=== PATIENT | female | born 1975 | race African-American/Black ===

== ENCOUNTER 2024-11-17 06:15 | Day surgery (SDC) | payer OTHER ==
[2024-11-17] MEDS: LIDOCAINE HCL 1%, 10 MG/ML (20ML VIAL) NR ONE
[2024-11-17] MEDS ORDERED: LIDOCAINE HCL 1%, 10 MG/ML (20ML VIAL) ONE (14:57)
[2024-11-17] MEDS ORDERED: HEPARIN NA (PORCINE) 5,000 UNITS/ML 1ML VIAL ONE (14:57)
[2024-11-17 15:51] LABS: GLUCOSE,RANDOM 88.0 mg/dL (74-106)
[2024-11-17] MEDS ORDERED: MIDAZOLAM HCL 2 MG/2 ML SINGLE DOSE VIAL ONE (17:18)
[2024-11-17] MEDS ORDERED: PROPOFOL 20 ML ONE (17:53)
[2024-11-17] MEDS ORDERED: PANTOPRAZOLE 20 MG TABLET PO PRN (18:14)
[2024-11-17] MEDS ORDERED: diphenhydrAMINE HCL 25 MG CAPSULE (FP) PO PRN (18:14)
[2024-11-17] MEDS ORDERED: ONDANSETRON 4 MG/2 ML VIAL IVPUSH PRN (18:21)
[2024-11-17] MEDS ORDERED: LACTATED RINGERS SOLUTION 1,000 ML IV SCH (18:30)
[2024-11-17] MEDS: ACETAMINOPHEN 325 MG TABLET (FP) PO PRN (22:23)
[2024-11-17] MEDS: METOPROLOL TARTRATE 25 MG TABLET (FP) PO SCH (22:24)
[2024-11-17] MEDS ORDERED: ACETAMINOPHEN 1000 MG/100 ML BAG IVPB PRN (23:21)
[2024-11-17] MEDS: INSULIN GLARGINE (LANTUS) 100 UNITS/ML UNITS SQ SCH (23:48)
[2024-11-17] MEDS: PANTOPRAZOLE 20 MG TABLET PO SCH (23:48)
[2024-11-18] MEDS: PATIENT'S OWN MEDICATION (NON-FORMULARY) (Insulin Degludec [Tresiba Flextouch U-100] 100 U SQ SCH (00:03)
[2024-11-18] MEDS: CALCITRIOL 0.25 MCG CAPSULE (FP) PO SCH (10:26)
[2024-11-18] MEDS: ASPIRIN COATED 81 MG TABLET.EC PO SCH (10:26)
[2024-11-18] MEDS: CINACALCET HCL 30 MG TAB (FP) PO SCH (10:26)
[2024-11-18] MEDS: FLUTICASONE PROP 0.05% 16 GM NASAL SPRAY NS SCH (10:27)
[2024-11-18] MEDS ORDERED: SODIUM CHLORIDE 250 ML IV PRN (12:06)
[2024-11-18] MEDS ORDERED: HEPARIN NA (PORCINE) 5,000 UNITS/ML 1ML VIAL IVPUSH ONE (12:06)
[2024-11-18] MEDS: HEPARIN NA (PORCINE) 5,000 UNITS/ML 1ML VIAL IVPUSH ONE (14:05)
[2024-11-18 14:12] VITALS: BMI 47.4
[2024-11-18 14:18] VITALS: RESP 18; TEMP 98
[2024-11-18] MEDS: HEPARIN NA (PORCINE) 5,000 UNITS/ML 1ML VIAL IVPUSH SCH (15:00)
[2024-11-18 18:20] VITALS: BP 125/57; PULSE 82
== END 2024-11-18 19:50 | disposition home or self-care (01) ==
LOC: JASUSAT 06:15 → J7W 19:50 → JASUSAT 11-18 19:50
PROVIDERS: ATTEND Surgery
PROC: 0J2TXYZ Change Other Device in Trunk Subcutaneous Tissue and Fascia, External Approach (ICD-10-PCS; principal; 2024-11-17 14:45)
DX: T82.858A Stenosis of other vascular prosthetic devices, implants and grafts, initial encounter (principal); I12.0 Hypertensive chronic kidney disease with stage 5 chronic kidney disease or end stage renal disease; E11.22 Type 2 diabetes mellitus with diabetic chronic kidney disease; N18.6 End stage renal disease; Z79.4 Long term (current) use of insulin; Z99.2 Dependence on renal dialysis
CPT/HCPCS: 36581; 77001; C1750; 36415; 76000-TC-FY; 82947; 82962; 84132; 84703; 94760; J1644

== ENCOUNTER 2024-11-30 06:08 | Day surgery (SDC) | payer OTHER ==
[2024-11-30] MEDS ORDERED: HEPARIN NA (PORCINE) 5,000 UNITS/ML 1ML VIAL ONE ×2 (07:06→11:27)
[2024-11-30] MEDS ORDERED: PAPAVERINE HCL 30 MG/1 ML 10 ML VIAL NR ONE (07:06)
[2024-11-30] MEDS ORDERED: POVIDONE-IODINE OINTMENT 10% - 28.4 GM TUBE ONE ×2 (07:06→11:51)
[2024-11-30] MEDS ORDERED: LIDOCAINE HCL 1%, 10 MG/ML (20ML VIAL) ONE ×2 (07:06→11:27)
[2024-11-30] MEDS ORDERED: MIDAZOLAM HCL 2 MG/2 ML SINGLE DOSE VIAL ONE ×3 (12:28→14:17)
[2024-11-30] MEDS ORDERED: DEXAMETHASONE SOD PHOSPHATE 4 MG/1 ML VIAL ONE (12:37)
[2024-11-30] MEDS ORDERED: GLYCOPYRROLATE 0.2 MG/1 ML VIAL ONE ×2 (12:37)
[2024-11-30] MEDS ORDERED: ONDANSETRON 4 MG/2 ML VIAL ONE (12:37)
[2024-11-30] MEDS ORDERED: KETAMINE HCL 200 MG/20 ML VIAL ONE (12:38)
[2024-11-30] MEDS ORDERED: PROPOFOL 60 ML ONE (12:42)
[2024-11-30] MEDS ORDERED: PROPOFOL 20 ML ONE ×2 (12:48→12:59)
[2024-11-30] MEDS: LIDOCAINE HCL 1%, 10 MG/ML (50 mL VIAL) INF ONE ×3 (12:57)
[2024-11-30] MEDS ORDERED: PHENYLEPHRINE HCL 10 MG/1 ML SINGLE DOSE VIAL ONE (13:06)
[2024-11-30] MEDS ORDERED: NOREPINEPHRINE BITARTRATE 4 MG/4 ML ML IV ONE (13:10)
[2024-11-30] MEDS ORDERED: SUCCINYLCHOLINE CHLORIDE 200 MG/10 ML SYRINGE ONE (13:12)
[2024-11-30] MEDS ORDERED: ROCURONIUM BROMIDE 50 MG/5 ML SYRINGE ONE ×2 (13:24→14:38)
[2024-11-30] MEDS ORDERED: PROPOFOL 40 ML ONE (14:05)
[2024-11-30] MEDS ORDERED: SUGAMMADEX SODIUM 200 MG/2 ML VIAL ONE ×2 (15:11→15:12)
[2024-11-30] MEDS: ACETAMINOPHEN 1000 MG/100 ML BAG IVPB ONE (15:53)
[2024-11-30] MEDS: SODIUM CHLORIDE 1,000 ML IV SCH (15:54)
[2024-11-30] MEDS ORDERED: ONDANSETRON 4 MG/2 ML VIAL IVPUSH PRN (15:58)
[2024-11-30 17:49] VITALS: RESP 18
[2024-11-30] MEDS: ACETAMINOPHEN 1000 MG/100 ML BAG IVPB SCH (21:27)
[2024-11-30] MEDS: ENOXAPARIN NA (PORCINE) 40 MG/0.4 ML DISP.SYRIN SQ ONE (21:28)
[2024-11-30] MEDS ORDERED: ENOXAPARIN NA (PORCINE) 40 MG/0.4 ML DISP.SYRIN SQ SCH (22:00)
[2024-12-01] MEDS ORDERED: SODIUM CHLORIDE 250 ML IV PRN ×2 (07:29→10:27)
[2024-12-01] MEDS ORDERED: HEPARIN NA (PORCINE) 5,000 UNITS/ML 1ML VIAL IVPUSH ONE (07:29)
[2024-12-01 07:53] LABS: ABSOLUTE IMMATURE GRANULOCYTES 0.03 x10^3/uL (0.0-0.031); BASOPHILS # 0.05 x10^3/uL (0.01-0.08); EOSINOPHIL % 5.9 % (0.7-5.8); EOSINOPHILS # 0.59 x10^3/uL (0.04-0.36); MCHC 32.0 g/dl (32.2-35.5); MEAN CELL VOLUME 94.4 fl (79.4-94.8); MEAN PLT VOLUME 9.7 fl (9.4-12.3); MONOCYTE # 1.11 x10^3/uL (0.24-0.86); MONOCYTE % 11.0 % (4.7-12.5); RDW 13.0 % (12.3-16.6)
[2024-12-01 08:40] LABS: GLUCOSE,RANDOM 101 mg/dL (74-106)
[2024-12-01 08:41] LABS: TOT PROT 6.5 g/dl (6.4-8.2)
[2024-12-01 08:42] LABS: CO2 22 mmol/L (21-32)
[2024-12-01 08:43] LABS: ALK PHOS 96 U/L (40-150)
[2024-12-01 08:46] LABS: SGOT/AST 15 U/L (5-34)
[2024-12-01 09:02] LABS: SGPT/ALT < 6 U/L (0-55)
[2024-12-01 09:22] LABS: CREATININE 13.46 mg/dL (0.55-1.3)
[2024-12-01] MEDS: HEPARIN NA (PORCINE) 5,000 UNITS/ML 1ML VIAL IVPUSH ONE (09:40)
[2024-12-01] MEDS: HEPARIN NA (PORCINE) 5,000 UNITS/ML 1ML VIAL IVPUSH SCH (10:40)
[2024-12-01 13:57] VITALS: BP 103/58; PULSE 88; TEMP 98.1
[2024-12-01 17:04] VITALS: BMI 50.0
[2024-12-02] MEDS ORDERED: ENOXAPARIN NA (PORCINE) 30 MG/0.3 ML DISP.SYRIN SQ SCH (10:00)
== END 2024-12-01 19:16 | disposition home or self-care (01) ==
LOC: JASU-SURG 06:08 → JASUSAT 06:08 → J7W 17:53 → JASUSAT 12-01 19:16
PROVIDERS: ATTEND Surgery
PROC: 03160JD Bypass Left Axillary Artery to Upper Arm Vein with Synthetic Substitute, Open Approach (ICD-10-PCS; principal; 2024-11-30 08:00)
DX: E11.22 Type 2 diabetes mellitus with diabetic chronic kidney disease (principal); I12.0 Hypertensive chronic kidney disease with stage 5 chronic kidney disease or end stage renal disease; N18.6 End stage renal disease; Z99.2 Dependence on renal dialysis; Z79.4 Long term (current) use of insulin
CPT/HCPCS: 36415; 80053; 84132; 84703; 85025; 87340; 94760; C1768

== ENCOUNTER 2024-12-21 07:12 | Day surgery (SDC) | payer OTHER ==
[2024-12-19 15:29] VITALS: BMI 46.5
[2024-12-21] MEDS ORDERED: PROPOFOL 20 ML ONE (12:12)
[2024-12-21] MEDS ORDERED: MIDAZOLAM HCL 2 MG/2 ML SINGLE DOSE VIAL ONE ×2 (12:12→12:41)
[2024-12-21] MEDS ORDERED: DEXMEDETOMIDINE HCL 200 MCG/2 ML IVPB ONE (12:37)
[2024-12-21] MEDS: LIDOCAINE HCL 1%, 10 MG/ML (20ML VIAL) INF ONE (12:59)
[2024-12-21] MEDS ORDERED: IBUPROFEN 600 MG TABLET (FP) PO ONE (15:43)
[2024-12-21] MEDS: IBUPROFEN 600 MG TABLET (FP) PO PRN (15:46)
[2024-12-21] MEDS: APIXABAN 5 MG TABLET PO SCH (15:47)
[2024-12-21 16:03] VITALS: TEMP 97.3
[2024-12-21 16:51] VITALS: BP 111/52; PULSE 72; RESP 18
== END 2024-12-21 18:15 | disposition home or self-care (01) ==
LOC: JASU-SURG 07:12
PROVIDERS: ATTEND Surgery
PROC: 03C83ZZ Extirpation of Matter from Left Brachial Artery, Percutaneous Approach (ICD-10-PCS; 2024-12-21)
PROC: 03C63ZZ Extirpation of Matter from Left Axillary Artery, Percutaneous Approach (ICD-10-PCS; principal; 2024-12-21 11:30)
DX: T82.868A Thrombosis due to vascular prosthetic devices, implants and grafts, initial encounter (principal); N18.6 End stage renal disease; Z99.2 Dependence on renal dialysis
CPT/HCPCS: 36415; 76000-TC-FY; 84132; 84703; 94760; C1757